=== PATIENT | female | born 1990 | race Hispanic/Latino ===

== ENCOUNTER 2021-07-31 01:28 | Emergency (ER) | payer OTHER ==
[~2021-07-31] VITALS: Ht 149.9 cm; Wt 83.5 kg
[2021-07-31 02:48] LABS: BASOPHILS % (AUTO) 0.4 % (0.0-5.0); EOSINOPHILS % (AUTO) 2.7 % (0.0-8.0); HEMATOCRIT 41.9 % (36-48); LYMPHOCYTES % (AUTO) 15.3 % (21.0-51.0); MEAN CORPUSCULAR HEMOGLOBIN 29.5 pg (27.0-33.0); MEAN CORPUSCULAR HGB CONC 33.7 g/dL (32.0-36.0); MEAN CORPUSCULAR VOLUME 87.7 fL (79-99); MONOCYTES % (AUTO) 4.3 % (3.0-13.0); PLATELET COUNT (AUTO) 241 K/uL (130-400); RED BLOOD CELL COUNT(AUTO) 4.78 MIL/uL (4.00-5.50); RED CELL DISTRIBUTION WIDTH 12.1 % (11.0-15.5); WHITE BLOOD COUNT (AUTO) 13.9 K/uL (4.8-10.8)
[2021-07-31 02:49] LABS: APPEARANCE,URINE Clear (CLEAR); BILIRUBIN,URINE Negative (NEGATIVE); COLOR,URINE Yellow (YELLOW); GLUCOSE, URINE (UA) Negative (NEGATIVE); KETONES,URINE Negative (NEGATIVE); LEUKOCYTE ESTERASE ,URINE Negative (NEGATIVE); NITRATE,URINE Negative (NEGATIVE); OCCULT BLOOD,URINE Negative (NEGATIVE); PH,URINE 5.5 (5.0-8.0); PROTEIN,URINE Negative (NEGATIVE); UROBILINOGEN,URINE 0.2 mg/dL (0.2-1.0)
[2021-07-31 02:51] LABS: HCG,QUAL RESULT NEGATIVE (NEGATIVE)
[2021-07-31 03:00] LABS: CREATININE 0.5 mg/dL (0.5-1.5); POTASSIUM 4.4 mmol/L (3.5-5.1)
[2021-07-31 03:04] LABS: ALBUMIN 4.3 g/dL (3.5-5.0); BILIRUBIN,TOTAL 0.7 mg/dL (0.2-1.0); TOTAL PROTEIN, SERUM 7.9 g/dL (6.0-8.3)
[2021-07-31] MEDS ORDERED: PANTOPRAZOLE 40 MG/VIAL IVP ONE (03:30)
[2021-07-31] MEDS ORDERED: FAMOTIDINE 20MG VIAL IV ONE (03:30)
[2021-07-31] MEDS ORDERED: 0.9%NACL 1000ML 1,000 ML IV ONE (03:30)
[2021-07-31] MEDS ORDERED: METOCLOPRAMIDE 10 MG/2 ML VIAL IVP ONE (03:30)
[2021-07-31] MEDS ORDERED: ONDANSETRON 4MG INJ IVP ONE (03:30)
[2021-07-31] MEDS ORDERED: PANT40TA PO (05:13)
[2021-07-31] MEDS ORDERED: DICY20TA2 PO (05:13)
[2021-07-31] MEDS ORDERED: ONDA4TAB10 PO (05:13)
[2021-07-31] MEDS ORDERED: METO-296 PO (05:13)
[2021-07-31 05:22] VITALS: BP 120/65
== END 2021-07-31 05:37 | disposition home or self-care (01) ==
LOC: EDH 01:28
DX: K29.70 Gastritis, unspecified, without bleeding (principal); E86.9 Volume depletion, unspecified; Z88.6 Allergy status to analgesic agent
CPT/HCPCS: 36415; 76705; 80053; 81003; 81025; 83690; 85025; 96374; 96375; 99284; C9113; J2405; J2765; J3490

== ENCOUNTER 2024-09-15 09:22 | Emergency (ER) | payer SELFPAY ==
[~2024-09-15] VITALS: Ht 149.9 cm; Wt 83.9 kg
[~2024-09-15 09:22] MED LIST: DICY20TA2 PO; METO-296 PO; ONDA-243 PO; PANT40TA PO
--- NOTE | 2024-09-15 09:31 | ERN ---
General Chief Complaint: Congestion Stated Complaint: COUGH Time Seen by MD: 09:26 Source: patient History of Present Illness Initial Comments PATIENT IS A 34-YEAR-OLD FEMALE COMING IN TO BE EVALUATED FOR CONGESTION. PATIENT STATES THAT SHE HAS BEEN COUGHING MAINLY AT NIGHT FOR ABOUT THREE MONTHS. PATIENT STATES HE HAS NOT BEEN ABLE TO FOLLOW UP WITH HER PCP DUE TO INSURANCE REASONS. NO FEVER OR CHILLS NO NAUSEA NO VOMITING. Allergies: Coded Allergies: ibuprofen (Unverified Allergy, Unknown, 07/31/21) Home Meds Active Scripts Ondansetron (Ondansetron Odt) 4 Mg Tab.rapdis, 4 MG PO Q6HPRN, #20 TAB 0 Refills Prov:TOD SEWELL MD 07/31/21 Metoclopramide HCl (Reglan) 10 Mg Tablet, 10 MG PO TIDP, #20 TAB 0 Refills Prov:TOD SEWELL MD 07/31/21 Pantoprazole Sodium (Protonix) 40 Mg Tablet.dr, 40 MG PO DAILY, #10 TAB 0 Refills Prov:TOD SEWELL MD 07/31/21 Dicyclomine HCl (Bentyl) 20 Mg Tab, 20 MG PO Q6HPRN, #20 TAB 0 Refills Prov:TOD SEWELL MD 07/31/21 Past Medical History Past Medical History: No Pertinent History, Other Medical History Other: GALLSTONES Past Surgical History: BTL Surgical History Other: TUBAL Social History Social History: Lives with family ROS Dictation CONSTITUTIONAL: NO CHILLS, NO FEVER, NO WEAKNESS, NO DIAPHORESIS, NO MALAISE. HEAD/FACE: NO SIGNS OF TRAUMA. EENT: NO EYE PAIN, NO BLURRED VISION, NO TEARING, NO DOUBLE VISION, NO EAR PAIN, NO EAR DISCHARGE, NO NOSE PAIN, NO NASAL CONGESTION, NO THROAT PAIN, NO THROAT SWELLING, NO MOUTH PAIN. RESPIRATORY: COUGH, NO ORTHOPNEA, NO SOB, NO STRIDOR, NO WHEEZING. CARDIOVASCULAR: NO CHEST PAIN, NO EDEMA, NO PALPITATIONS, NO SYNCOPE. GASTROINTESTINAL/ABDOMINAL: NO ABDOMINAL PAIN, NO CONSTIPATION, NO DIARRHEA, NO NAUSEA, NO VOMITING. GENITOURINARY: NO ABNORMAL DISCHARGE, NO DYSURIA, NO FREQUENT URINATION, NO HEMATURIA. NO COMPLAINTS OF PAIN IN THE GENITALS. MUSCULOSKELETAL: NO BACK PAIN, NO GOUT, NO JOINT PAIN, NO JOINT SWELLING, NO MUSCLE PAIN, NO MUSCLE STIFFNESS, NO NECK PAIN. INTEGUMENTARY: NO CHANGE IN COLOR, NO CHANGE IN HAIR/NAILS, NO DRYNESS, NO LESION, NO LUMPS, NO RASH. NEUROLOGICAL/PSYCH: NO ANXIETY, NOT DEPRESSED, NO EMOTIONAL PROBLEM, NO HEADACHE, NO NUMBNESS, NO PRE-EXISTING DEFICIT, NO HISTORY OF SEIZURES, NO TREMORS, NO WEAKNESS. HEMATOLOGIC/LYMPHATIC: NOT ANEMIC, NO HISTORY OF BLOOD CLOTS, NO APPARENT BLEEDING, NO BRUISING, GLANDS NOT SWOLLEN. ALL SYSTEMS NEGATIVE, EXCEPT NOTED. Physical Exam Physical Exam Dictation VITAL SIGNS: REVIEWED. GENERAL APPEARANCE: ALERT, ORIENTED X3, NO ACUTE DISTRESS, OBESE. HEAD AND FACE: NON-TRAUMATIC. EYES: PERRL, PINK CONJUNCTIVAS, EYELID NO TRAUMA, ANTERIOR CHAMBER CLEAR. EARS: PINNAS INTACT AND NO SIGNS OF TRAUMA OR ERYTHEMA. EAR CANALS CLEAR AND NO DISCHARGE. TMS NO ERYTHEMA. NOSE: NO DISCHARGE, NO BLEEDING. OROPHARYNX: MOUTH NORMAL, TEETH NO CARIES, TONGUE PINK. PHARYNX CLEAR, NO ERYTHEMA. TONSILS NO EXUDATES, NO ABSCESSES NOTED. MUCOUS MEMBRANE MOIST. NECK: SUPPLE, NON-TENDER, NO THYROMEGALY, NO MASSES, NO JVD, NO BRUITS. BREAST: DEFERRED. CHEST: NO TENDERNESS, NO CREPITUS, NO PARADOXICAL MOVEMENT, NO RETRACTIONS. LUNGS: CLEAR, WELL-VENTILATED, SYMMETRIC, NO RALES, NO WHEEZING, NO RHONCHI, NO STRIDOR, GOOD BREATH SOUNDS BILATERALLY. HEART: REGULAR RATE, REGULAR RHYTHM, NO MURMUR, NO GALLOPS. VASCULAR: NO PERIPHERAL EDEMA. ABDOMEN: SOFT, POSITIVE BOWEL SOUNDS, NONDISTENDED, NO GUARDING, NONTENDER, NO REBOUND, NO MASSES NO HEPATOMEGALY, NO SPLENOMEGALY, NO CAMARGO'S SIGN, NO H ERNIAS. RECTAL: DEFERRED. GENITAL: DEFERRED. NEUROLOGICAL: NORMAL SPEECH, GROSS MOTOR FUNCTION INTACT, GROSS SENSORY FUNCTI ON INTACT. MUSCULOSKELETAL: NECK NONTENDER, FULL RANGE OF MOTION, BACK NONTENDER, FULL RANGE OF MOTION. EXTREMITIES: NONTENDER, FULL RANGE OF MOTION. SKIN: COLOR PINK, DRY, NO TURGOR, NO RASH, NO LACERATIONS, NO ABRASIONS, NO CONTUSIONS. LYMPHATICS: DEFERRED. Results Laboratory and Microbiology Lab and Micro Result MDM: DIFFERENTIAL DIAGNOSIS: URI, SINUSITIS, REACTIVE AIRWAY DISEASE, PATIENT IS A 34-YEAR-OLD FEMALE COMING IN TO BE EVALUATED FOR CHRONIC COUGH. ON PHYSICAL EXAM LUNG SOUNDS CLEAR. YOUR NOSE AND THROAT MILD OROPHARYNGEAL ERYTHEMA OTHERWISE UNREMARKABLE. PATIENT WILL BE DISCHARGED WITH A DIAGNOSIS OF CHRONIC SINUSITIS. I DID ADVISED HER APPROPRIATE FOLLOW UP WITH PCP AND OR ENT IN 1-2 DAYS. MDM MDM: DIFFERENTIAL DIAGNOSIS: SINUSITIS, URI, ED Course Orders Procedure Category Date Status Time ,Urine Test LAB 09/15/24 Logged 09:29 Albuterol 0.083% PHA 09/15/24 Complete 2.5mg/3ml (Proventil 10:00 Current Medications Medications (Trade) Dose Ordered Sig/Harry Route PRN Reason Start Time Stop Time Status Last Admin Dose Admin Albuterol Sulfate (Proventil 0.083% 2.5mg/3ml) 2 mg ONCE ONCE IH 09/15/24 10:00 09/15/24 10:01 DC Vital Signs Date Time Temp Pulse Resp B/P (MAP) Pulse Ox O2 Delivery O2 Flow Rate FiO2 09/15/24 09:24 97.9 85 16 121/82 100 Room Air DX & DISP Disposition: Discharge Departure Impression: Primary Impression: CHRONIC SINUSITIS, UNSPECIFIED Condition: Stable Scripts Loratadine (Loratadine) 10 Mg Tablet 1 TAB PO DAILY for allergy symptoms for 30 Days, #30 TAB 0 Refills Prov: JAVAN WALL MD 09/15/24 Fluticasone Propionate (Flonase Nasal [place]) 50 Mcg/Actuation [place] 2 SPRAY NS DAILY, #16 GM 0 Refills Prov: JAVAN WALL MD 09/15/24 Additional Instructions: FOLLOW-UP WITH PRIMARY CARE PROVIDER IN 1 TO 2 DAYS. TAKE MEDICATIONS DIRECTED HERE IN THE EMERGENCY ROOM. OKAY TO CONTINUE HOME MEDICATIONS UNLESS OTHERWISE DISCUSSED DURING YOUR VISIT IN THE EMERGENCY ROOM TODAY. RETURN TO YOUR NEAREST EMERGENCY ROOM IF SYMPTOMS WORSEN OR IF THERE IS NO IMPROVEMENT. CALL 911 IF YOU NEED IMMEDIATE ASSISTANCE. TAKE TYLENOL [id number] NEEDED AND IF NO CONTRAINDICATIONS ARE PRESENT. INCREASE ORAL HYDRATION. A WOUND CULTURE OR URINE CULTURE WAS ORDERED HERE IN THE EMERGENCY ROOM DEPARTMENT PLEASE FOLLOW-UP WITH PRIMARY CARE PROVIDER AND ADVISE THEM TO GET REPEAT PORTS FROM OUR FACILITY. IF YOU HAD ANY VANDANA WRAP/SPLINTS THAT WERE APPLIED HERE, PLEASE DO NOT REMOVE THEM UNTIL YOU SEE YOUR PRIMARY CARE OR SPECIALTY. REFERRALS: Referrals: SELF,REFERRAL (PCP) ERMA LUCAS MD, JAMES T MD Time of Disposition: 10:40 JAVAN WALL MD Sep 15, 2024 09:31
[2024-09-15 10:39] VITALS: BP 118/79; RESP 16; TEMP 97.9; O2SAT 100
[2024-09-15] MEDS ORDERED: FLUT16H NS (10:42)
[2024-09-15] MEDS ORDERED: LORA10TA7 PO (10:42)
[2024-09-15 10:44] VITALS: PULSE 74
[2024-09-15] MEDS: ALBUTEROL 0.083% 2.5 MG/3 ML INH IH ONE (10:44)
== END 2024-09-15 10:57 | disposition home or self-care (01) ==
LOC: EDH 09:22
DX: J32.9 Chronic sinusitis, unspecified (principal); Z79.899 Other long term (current) drug therapy; Z88.6 Allergy status to analgesic agent; Z98.51 Tubal ligation status
CPT/HCPCS: 94640; 99283